=== PATIENT | male | born 1975 | race Caucasian/White ===

== ENCOUNTER 2017-06-04 13:01 | Emergency (ER) | payer OTHER ==
[2017-06-04 13:09] VITALS: BP 141/84; PULSE 60; TEMP 98.3; BMI 25.1
[2017-06-04] MEDS ORDERED: IBUPROFEN 600 MG TABLET (FP) PO ONE ×2 (16:07→16:09)
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
== END 2017-06-04 16:16 | disposition home or self-care (01) ==
LOC: JERFT 13:01
DX: S13.4XXA Sprain of ligaments of cervical spine, initial encounter (principal); V44.5XXA Car driver injured in collision with heavy transport vehicle or bus in traffic accident, initial encounter; Y92.411 Interstate highway as the place of occurrence of the external cause; Y93.89 Activity, other specified; Y99.8 Other external cause status
CPT/HCPCS: 99281-25